=== PATIENT | male | born 1990 | race Caucasian/White ===

== ENCOUNTER 2021-04-22 09:25 | Emergency (ER) | payer MEDICAID ==
[~2021-04-22] VITALS: Ht 182.9 cm; Wt 72.6 kg
[2021-04-22] MEDS ORDERED: ACETAMINOPHEN ES 500 MG TABLET PO ONE (09:45)
[2021-04-22] MEDS ORDERED: ACETAMINOPHEN ES 500 MG TABLET ONE (09:54)
[2021-04-22] MEDS ORDERED: HYDR-4209 PO (10:48)
[2021-04-22] MEDS ORDERED: IBUP-1955 PO (10:48)
[2021-04-22] MEDS ORDERED: AMOX875T2 PO (10:48)
[2021-04-22] MEDS ORDERED: AMOXicillin 250 MG CAPSULE PO ONE (11:00)
[2021-04-22] MEDS ORDERED: AMOXicillin 250 MG CAPSULE ONE (11:04)
--- NOTE | 2021-04-22 11:04 | NUR ---
Patient discharged to home in stable condition. Written and verbal after care instructions given. Patient verbalizes understanding of instructions. Stressed follow up or return to ER for worsening s/s.
== END 2021-04-22 11:06 | disposition home or self-care (01) ==
LOC: ER 09:25
DX: S02.642A Fracture of ramus of left mandible, initial encounter for closed fracture (principal); Y04.0XXA Assault by unarmed brawl or fight, initial encounter; Y92.89 Other specified places as the place of occurrence of the external cause
CPT/HCPCS: 70110; A4663; A9150